=== PATIENT | male | born 1945 | race Caucasian/White ===

== ENCOUNTER → 2018-01-12 11:25 | Outpatient (CLI) | payer OTHER, SELFPAY ==
--- NOTE | 2018-01-12 | DI.CT.S_ITS ---
PROCEDURE: CT CHEST ABD PEL W CON INDICATIONS: PROSTATE CANCER TECHNIQUE: After the administration of oral and intravenous contrast, 5 mm thick sections acquired from the lung apices to the symphysis. 5 mm coronal and sagittal reformats were performed, with additional 7 mm coronal MIP reformats through the lungs. For radiation dose reduction, the following was used: automated exposure control, adjustment of mA and/or kV according to patient size. COMPARISON: [facility], CT, CT KUB, 11/23/2017, 12:36. [facility], [place], [place] BONE SCAN WHOLE BODY, 01/12/2018, 13:28. FINDINGS: Image quality: Excellent. CHEST: Lungs and pleura: No acute airspace opacities. No pleural effusions or pneumothorax. Central and peripheral airways appear patent and normal in caliber. Mediastinum: Heart size is normal. No pericardial effusion. No mediastinal or hilar adenopathy by size criteria. Thoracic aorta and central pulmonary arteries are normal in size. Esophagus is normal in caliber. No hiatal hernia. Chest wall: No axillary or supraclavicular adenopathy by size criteria. Thyroid gland appears normal. ABDOMEN: Solid organs: Liver is normal in size and enhancement. Gallbladder appears normal. Biliary system is non dilated. Pancreas enhances normally. Spleen is normal in size and enhancement. No adrenal nodules. Kidneys demonstrate normal size and enhancement, without hydronephrosis. Peritoneum and bowel: Bowel loops demonstrate normal wall thickness and caliber. No free fluid or air. Nodes and vessels: There is definite retroperitoneal but no mesenteric adenopathy by size criteria. The adenopathy is seen at the left periaortic retroperitoneum at the mid kidney level on the left, where enlarged nodes measuring up to 2.8 cm x 2.3 cm R. cluster, decreasing somewhat in size more inferiorly to the aortic bifurcation level and extending along the external iliac node chain. This retroperitoneal adenopathy has not significantly increased from the comparison noncontrast CT scan in early November of this year. Aorta and inferior vena cava are normal in size. Miscellaneous: No ventral hernias. PELVIS: Genitourinary: Bladder wall thickness is normal. Note is made of a TURP defect extending to the posterior right border of the prostate margin adjacent to the anterior border of the right seminal vesicle. The bladder wall appears asymmetrically thickened left greater than right and somewhat lobulated in the area of operative intervention (see series 2 image 113). Miscellaneous: No inguinal hernias. The para-aortic adenopathy seen within the abdomen extends along the left common iliac artery node chain and extends also along the right and left external iliac artery node chain greater on the left than the right. In this area the largest identified node on the left measures up to 3.5 x 3.2 cm and on the right measures up to 2.5 x 2.1 cm. This adenopathy has not significantly increased, with reference to the prior noncontrast CT scan. Bones: No suspicious bony lesions. Note is made of asymmetric right greater than left L2 region facet osteoarthritis, which correlates with an area of asymmetric increased isotope deposition on nuclear medicine bone scan also performed today. No osteoblastic or osteolytic bone lesions are seen that would indicate likelihood of definite metastatic disease to the osseous elements of the axial or appendicular skeleton. No vertebral body compression fractures. IMPRESSION: 1. Retroperitoneal adenopathy within the abdomen and pelvis, greater on the left than the right within the pelvis and through the abdomen. No osseous metastatic disease is found. 2. Distortion of the junction between the bladder and the prostate gland may represent a TURP defect, extending through the bladder wall on the right to the posterior inferior bladder margin without hematoma or evidence of urinoma. Asymmetric left greater than right bladder wall thickening in this area, posteriorly and inferiorly, of indeterminate significance in the setting of recent operative procedure. 3. As discussed during nuclear medicine bone scan report there is asymmetric facet degeneration at the right L2-3 facet region, but no osteoblastic or lytic change in that area is found. Dictated by: Boston Mccurdy M.D. on 01/12/2018 at 15:15 Approved by: Boston Mccurdy M.D. on 01/12/2018 at 15:35
--- NOTE | 2018-01-12 | DI.NM.S_ITS ---
PROCEDURE: [place] BONE SCAN WHOLE BODY RADIOPHARMACEUTICAL: 19.0 mCi Tc-99m MDP IV. INDICATIONS: PROSTATE CANCER TECHNIQUE: Delayed whole-body scintigrams were obtained approximately 3-4 hours after intravenous injection of radiotracer. Anterior and posterior views were acquired from vertex to feet. Additional left and right oblique views of the pelvis were obtained. COMPARISON: [facility], CT, CT CHEST ABD PEL W CON, 01/12/2018, 12:47. FINDINGS: There is focal elevated isotope uptake noted at the right L2-3 facet region, and correlation with a prior CT obtained earlier today shows subtle asymmetric increased degenerative thinning of the facet joint in that region when compared to a normal appearance on the left. 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 However, please also refer to the report from CT scanning obtained today discussing retroperitoneal adenopathy. Dictated by: Boston Mccurdy M.D. on 01/12/2018 at 15:08 Approved by: Boston Mccurdy M.D. on 01/12/2018 at 15:14
== END ==
PROVIDERS: PCP Family Medicine; Visit Provider Specialist
DX: C61 Malignant neoplasm of prostate (principal)
CPT/HCPCS: 71260; 74177; 78306; A9503; Q9967

== ENCOUNTER 2018-02-08 11:30 | Day surgery (SDC) | payer OTHER, SELFPAY ==
[2018-02-08] VITALS (8 sets, daily range): BP systolic 91–112; BP diastolic 56–78; PULSE 64–83; RESP 8–16; TEMP 35.8–36.6; O2SAT 92–99; BMI 36.1
--- NOTE | 2018-02-08 | PATH_ITS ---
[facility] Accession Number: [id number] . 01 Material submitted: . PART A: COLON POLYP AT 40CM PART B: HEPATIC FLEXTURE POLYP . 02 Diagnosis: A. Colon, Polyp at 40 CM, Biopsy: Tubular adenoma. . B. Hepatic Flexure, Polyp, Biopsy: Tubular adenoma. L/02/09/2018 . 02 Electronically signed: . Whitney Paris MD, Pathologist NPI- [id number] . 01 Gross description: . Received are two formalin-filled containers, both labeled with the patient's name: . A. In a container labeled colon polyp at 40 cm, are three 0.2-0.3 cm portions of tissue, entirely submitted in cassette A. B. In a container labeled hepatic flexure polyp, the specimen consists of a 0.4 cm portion of tissue, entirely submitted in cassette B. ([id number]) /FRR . 02 Pathologist provided ICD-10: D12.6, D12.3 . 02 CPT . 077042, [id number] Performed at: 01 [facility] [address], [place], [place] [id number] MD Rubén Palm MD Phone: [phone] Performed at: 02 [facility] [address] [place], [place] [id number] MD Sal Brunson MD Phone: [phone]
[2018-02-08] MEDS: SODIUM CHLORIDE 0.9% 1,000 ML 200 ML IV (12:12)
--- NOTE | 2018-02-08 13:30 | SUR.OPER ---
to endo from opd via cart tespirations unlabored iv patent positioned per self foer procedure
--- NOTE | 2018-02-08 13:49 | SUR.OPER ---
tolerate procedure well
--- NOTE | 2018-02-08 13:50 | PM.HP.1 ---
History of Present Illness Date Patient Seen: 02/08/18 Time Patient Seen: 12:53 Chief complaint: [id number] Narrative: Anthony is a very pleasant gentleman of 72 years who is accompanied by his . He reports that he has never had a screening colonoscopy and has been meaning to do so but has put off for number of years. He was recently diagnosed with prostate cancer and it was felt it was a good idea if he should go ahead and have a colonoscopy during this workup process. Patient History Family & Social History Family History: Reviewed 02/08/18 by Lanette An MD Social History: household members spouse Meds Home Medications Medication Instructions Recorded Confirmed Type lisinopril-hydrochlorothiazide 1 tab PO QDAY #90 tab 06/05/16 02/08/18 Rx amlodipine [Norvasc] 5 mg PO QDAY #90 tab 11/03/16 02/08/18 Rx Allergies Allergy/AdvReac Type Severity Reaction Status Date / Time No Known Drug Allergies Allergy Verified 02/08/18 13:25 Review of Systems Review of Systems All systems reviewed & are unremarkable except as noted in HPI and below Exam Vital Signs (past 8 hours): Vital Signs - 8 hr 02/08/18 12:12 Temperature 96.8 F L Pulse Rate 83 Respiratory Rate 16 Blood Pressure 112/73 Pulse Oximetry 99 Pulse Oximetry 99 Oxygen Delivery Method Room Air Narrative Exam Narrative: Very pleasant well-nourished well-developed gentleman in no distress HEENT: Normocephalic and atraumatic, pupils equal round reactive to light accommodation with anicteric sclera Lungs: Clear to auscultation bilaterally Heart: Regular rate and rhythm Abdomen: Soft, nontender to palpation, active bowel sounds Extremities: Warm and well perfused Assessment & Plan (1) Prostate cancer: Current visit: No Status: Acute Plan: Assessment/Plan Narrative: Pleasant and generally healthy 72-year-old gentleman with a new diagnosis of prostate cancer. He has never had a screening colonoscopy. We discussed the risks and benefits of the procedure the patient expressed a desire to continue today.
[2018-02-08] MEDS: fentaNYL 250 MCG/5 ML INJ 200 MCG IV (13:52)
[2018-02-08] MEDS: MIDAZOLAM 5 MG/5 ML VIAL 8 MG IV (13:53)
--- NOTE | 2018-02-08 13:55 | P.HP_ITS ---
History of Present Illness Date Patient Seen: 02/08/18 Time Patient Seen: 12:53 Chief complaint: [id number] Narrative: Anthony is a very pleasant gentleman of 72 years who is accompanied by his . He reports that he has never had a screening colonoscopy and has been meaning to do so but has put off for number of years. He was recently diagnosed with prostate cancer and it was felt it was a good idea if he should go ahead and have a colonoscopy during this workup process. Patient History Family & Social History Family History: Reviewed 02/08/18 by Lanette An MD Social History: household members spouse Meds Home Medications Medication Instructions Recorded Confirmed Type lisinopril-hydrochlorothiazide 1 tab PO QDAY #90 tab 06/05/16 02/08/18 Rx amlodipine [Norvasc] 5 mg PO QDAY #90 tab 11/03/16 02/08/18 Rx Allergies Allergy/AdvReac Type Severity Reaction Status Date / Time No Known Drug Allergies Allergy Verified 02/08/18 13:25 Review of Systems Review of Systems All systems reviewed & are unremarkable except as noted in HPI and below Exam Vital Signs (past 8 hours): Vital Signs - 8 hr 3 02/08/18 12:12 Temperature 96.8 F L Pulse Rate 83 Respiratory Rate 16 Blood Pressure 112/73 Pulse Oximetry 99 Pulse Oximetry 99 Oxygen Delivery Method Room Air Narrative Exam Narrative: Very pleasant well-nourished well-developed gentleman in no distress HEENT: Normocephalic and atraumatic, pupils equal round reactive to light accommodation with anicteric sclera Lungs: Clear to auscultation bilaterally Heart: Regular rate and rhythm Abdomen: Soft, nontender to palpation, active bowel sounds Extremities: Warm and well perfused Assessment & Plan (1) Prostate cancer: Current visit: No Status: Acute Plan: Assessment/Plan Narrative: Pleasant and generally healthy 72-year-old gentleman with a new diagnosis of prostate cancer. He has never had a screening colonoscopy. We discussed the risks and benefits of the procedure the patient expressed a desire to continue today.
--- NOTE | 2018-02-08 13:55 | PM.OP.1 ---
Operative Date/Time/Diagnoses - Date of procedure: 02/08/18 Time of procedure: 13:56 Pre-op diagnosis: Screening Post-op diagnosis: same Procedure & Clinicians Procedure: Colonoscopy to the cecum with polypectomy x2 Same procedure as scheduled: Yes Indications: No prior colonoscopy Surgeon: Lanette An Click Yes if Unassisted: Yes Anesthesia Type: Sedation Operative Notes Findings: 1. Excellent prep 2. Significant diverticulosis in the sigmoid region with large tics and false passages. Relative sparing of the remainder of the colon 3. Two small sessile polyps removed with cold forceps and retained for pathology. A 2-3 mm polyp at the hepatic flexure and a 3-4 mm polyp at 40 cm from the anal verge 4. No AV malformations or other mucosal abnormalities 5. Grade 1-2 internal hemorrhoids Closure Type: not applicable Estimated Blood Loss (mL): 1 Procedure in detail: After obtaining informed consent, the patient was brought to the GI suite and placed in the left lateral decubitus position on the examination table. After placement of appropriate monitors, the patient was given incremental doses of Versed and Fentanyl until an appropriate level of sedation was achieved. A time out was held per SCOAP protocol. A digital rectal examination was performed and did not reveal any masses or obstructing lesions. The colonoscope was gently passed into the patient's anus and the entire colon navigated to the level of the cecum with minimal difficulty. Once in the cecum, the scope was withdrawn being sure to go before and beyond all mucosal folds and prominences and get an excellent examination. The findings are noted above. At the level of the rectal vault, the scope was retroflexed and the internal anal canal was examined. The scope was straightened and air aspirated from the colon. The instrument was removed from the patient's body and the procedure was concluded. The patient was allowed to awaken from sedation without difficulty and taken to the post-anesthesia care unit in good condition. Total sedation times 24 min Total withdrawal time 17 min Complications: none
--- NOTE | 2018-02-08 15:01 | SUR.PHASEII ---
pt ready to go, all outcomes met. pt dressed and left when ready and in stable condition.
== END 2018-02-08 14:48 | disposition home or self-care (01) ==
PROVIDERS: PCP Family Medicine; Visit Provider Surgery
PROC: 0DJD8ZZ Inspection of Lower Intestinal Tract, Via Natural or Artificial Opening Endoscopic (ICD-10-PCS; CPT 45378; principal; 2018-02-08 13:00)
DX: C61 Malignant neoplasm of prostate (principal); Z12.11 Encounter for screening for malignant neoplasm of colon; K57.30 Diverticulosis of large intestine without perforation or abscess without bleeding; K64.1 Second degree hemorrhoids; D12.6 Benign neoplasm of colon, unspecified; D12.3 Benign neoplasm of transverse colon
CPT/HCPCS: 45380; 99152; 99153; J2250; J3010

== ENCOUNTER → 2018-07-28 10:34 | Outpatient (CLI) | payer OTHER, SELFPAY ==
--- NOTE | 2018-07-28 | DI.NM.S_ITS ---
PROCEDURE: [place] BONE SCAN WHOLE BODY RADIOPHARMACEUTICAL: 21.4 mCi Tc-99m MDP IV. INDICATIONS: PROSTATE CANCER TECHNIQUE: Delayed whole-body scintigrams were obtained approximately 3-4 hours after intravenous injection of radiotracer. Anterior and posterior views were acquired from vertex to feet. COMPARISON: [facility], CT, CT CHEST ABD PEL W CON, 01/12/2018, 12:47. [facility], CR, XR CHEST 1 VIEW, 03/24/2018, 16:19. [facility], [place], [place] BONE SCAN WHOLE BODY, 01/12/2018, 13:28. FINDINGS: There are foci of intensely increased activity in the L2 and L4 vertebral body, suspicious bony metastasis. Increased uptake in the L5-S1 facet joints bilaterally a second lesion. There is diffusely increased activity involving the sternum, which is new and most likely related to recent sternotomy related to CABG. Subtle increased uptake is noted in the right frontal bone right to the midline. No lesions are identified in clavicles, scapulae, ribs, bony pelvis, and visualized shafts of the long bones. There are foci of mildly increased increased uptake in cervical, thoracic and lumbar spine with distribution indistinguishable from degenerative disc and facet disease; early metastasis to spine could be obscured by degenerative changes. There are foci of increased periarticular activity involving shoulders bilaterally, sternoclavicular joints bilaterally, wrists bilaterally, knees bilaterally and both feet, compatible with degenerative/arthritic changes. There is normal soft tissue uptake. IMPRESSION: 1. Increased uptake in lumbar spine levels L2 and L4, suspicious for metastasis. 2. Low level increased activity in the cervical, thoracic and lumbar spine may be degenerative but early metastatic disease could be obscured by the degenerative changes. 3. Degenerative/arthritic changes in multiple peripheral joints. Dictated by: Rufus Gruber M.D. on 07/28/2018 at 15:24 Approved by: Rufus Gruber M.D. on 07/29/2018 at 10:57
== END ==
PROVIDERS: PCP Family Medicine; Visit Provider Internal Medicine
DX: C61 Malignant neoplasm of prostate (principal); M15.0 Primary generalized (osteo)arthritis
CPT/HCPCS: 78306; A9503

== ENCOUNTER → 2019-06-17 10:37 | Outpatient (CLI) | payer OTHER, SELFPAY ==
--- NOTE | 2019-06-17 | DI.MRI.S_ITS ---
PROCEDURE: MR LUMBAR SPINE WO CON INDICATIONS: malignant neoplasm of prostate TECHNIQUE: Noncontrast sagittal T1 spin echo and T2 fast echo, sagittal STIR, axial T1 and T2 fast spin echo through the lumbar spine. In cases with scoliosis, additional coronal T2 fast spin echo may be performed. COMPARISON: [facility], [place], [place] BONE SCAN WHOLE BODY, 11/02/2018, 14:24. FINDINGS: Image quality: Excellent. Alignment and Curvature: There is normal bony alignment. Bone Marrow: Decreased T1 and increased T2 signal noted in the marrow space of the L2 and L4 vertebral bodies compatible with metastatic disease. No acute vertebral body compression fractures. Spinal Cord: Conus medullaris terminates at the L2 level. Visualized cord demonstrates normal signal and size. Paraspinous Soft Tissues: No paravertebral masses. L1-L2: Normal appearance. L2-L3: Loss of the signal. Minimal, diffuse disc bulge. No central stenosis. No neural foraminal narrowing. No neural compression. L3-L4: Loss of the signal. Mild, diffuse disc bulge. No central stenosis. Mild right neural foraminal narrowing. No neural compression. L4-L5: Loss of the signal. Mild, diffuse disc bulge. No central stenosis. Mild to moderate bilateral neural foraminal narrowing. No neural compression. L5-S1: Loss of the signal. Mild, diffuse disc bulge. Moderate bilateral facet hypertrophy. No central stenosis. Severe right and [id number] left neural foraminal narrowing with marked compression of the exiting right L5 nerve root and slight compression of the exiting left L5 nerve root. IMPRESSION: 1. Metastatic disease involving the L2 and L4 vertebral bodies. 2. Multilevel degenerative disease. 3. L5-S1 facet arthropathy. 4. No central stenosis. 5. Severe right and moderate to severe left L5-S1 neural foraminal narrowing. Mild to moderate bilateral L4-L5 neural foraminal narrowing. Mild right L3-L4 neural foraminal narrowing. 6. Compression of the exiting bilateral L5 nerve roots secondary to neural foraminal narrowing. Please correlate with clinical data. Dictated by: Mena Luna MD, PhD on 06/19/2019 at 11:47 Approved by: Mena Luna MD, PhD on 06/19/2019 at 11:51
== END ==
PROVIDERS: PCP Family Medicine; Referring Provider Internal Medicine; Visit Provider Family Medicine
DX: C61 Malignant neoplasm of prostate (principal); C79.51 Secondary malignant neoplasm of bone; M51.36 Other intervertebral disc degeneration, lumbar region; M47.817 Spondylosis without myelopathy or radiculopathy, lumbosacral region; M48.07 Spinal stenosis, lumbosacral region; M48.061 Spinal stenosis, lumbar region without neurogenic claudication; R10.31 Right lower quadrant pain
CPT/HCPCS: 72148

== ENCOUNTER 2019-07-30 13:50 | Emergency (ER) | payer OTHER, SELFPAY ==
[2019-07-30] VITALS (7 sets, daily range): BP systolic 108–138; BP diastolic 61–78; PULSE 71–91; RESP 16–22; TEMP 37.1; O2SAT 94–99; BMI 39.7
[2019-07-30 14:41] LABS: Appearance Urine UA SL CLOUDY; Bilirubin Urine UA 2+ (NEGATIVE); Color Urine UA YELLOW; Glucose Urine UA NEGATIVE (Negative); Ketones Urine UA TRACE (NEGATIVE); Leukocyte Esterase Urine UA TRACE (NEGATIVE); Nitrite Urine UA NEGATIVE (Negative); Occult Blood Urine UA 3+ (Negative); Protein Urine UA 1+ (Negative); Specific Gravity Urine UA 1.025 (1.000-1.035)
[2019-07-30 14:50] LABS: Ictotest Urine Positive (Negative); RBC Urine 10-30/HPF (0-5/HPF); Squamous Epithelial Cell Urine 0-1 /HPF (0-5/HPF); WBC Urine 5-10/HPF (0-5/HPF)
[2019-07-30 14:51] LABS: Amorphous Sediment Urine 3+; Bacteria Urine Few (2-10); Culture Indicated Urine Specimen Cultured; Mucus Urine 3+ (Negative)
--- NOTE | 2019-07-30 14:51 | DI.RAD.S_ITS ---
PROCEDURE: XR KUB INDICATIONS: constipation / abd pain/ jaundice TECHNIQUE: One view of the abdomen acquired. COMPARISON: [facility], MR, MR LUMBAR SPINE WO CON, 06/17/2019, 10:50. [facility], [place], [place] BONE SCAN WHOLE BODY, 11/02/2018, 14:24. FINDINGS: Surgical changes and devices: None. Bowel: There is gaseous distention of small and large bowel loops including the descending colon. The transverse colon measures up to approximately 6.7 cm in dimension. There is a moderate amount of colonic stool in the ascending colon. Soft tissues: No suspicious abdominal calcifications. Bones: There is sclerosis of the L2 and L4 vertebral bodies consistent with metastatic disease as seen on the prior studies. IMPRESSION: 1. Nonspecific bowel gas pattern with gas distention of small and large bowel loops including the colon. Findings are suggestive of an ileus and less likely a distal obstruction. Dictated by: Rubén Rollins M.D. on 07/30/2019 at 14:18 Approved by: Rubén Rollins M.D. on 07/30/2019 at 14:22
[2019-07-30 14:53] LABS: Add Manual Diff / Slide Review NO; Basophils Absolute Auto 100 /uL (0-100); Basophils Percent Auto 0.3 % (0-2); Eosinophils Absolute Auto 100 /uL (0-450); Eosinophils Percent Auto 0.5 % (2-4); Hematocrit 36.6 % (41-53); Hemoglobin 12.1 g/dL (13.5-17.5); Lymphocytes Absolute Auto 1000 /uL (1100-4500); Lymphocytes Percent Auto 6.7 % (25-40); Mean Corpuscular Hemoglobin 29.3 PG (26-34); Mean Corpuscular Volume 88.6 fL (80-100); Monocytes Absolute Auto 1500 /uL (0-900); Monocytes Percent Auto 10.2 % (3-14); Neutrophils Absolute Auto 12400 /uL (1500-7000); Neutrophils Percent Auto 82.3 % (50-75); Platelet Count 340 X10^3/uL (150-400); Red Blood Cell Count 4.13 X10^6/uL (4.5-5.9); Red Cell Distribution Width 15.3 % (11.6-14.8); White Blood Cell Count 15.1 X10^3/uL (4.5-11.0)
[2019-07-30 15:14] LABS: INR 1.1 (0.9-1.3); Prothrombin Time 13.3 SECONDS (10.1-12.7)
[2019-07-30 15:17] LABS: PTT Partial Thromboplastin Tim 31 SECONDS (26.4-36.2)
[2019-07-30 15:18] LABS: Alanine Aminotransferase 15 IU/L (<50); Albumin Globulin Ratio 1.1 (1.0-2.8); Alkaline Phosphatase 176 U/L (38-126); Aspartate Aminotransferase 44 IU/L (17-59); Bilirubin Total 1.7 mg/dL (0.2-1.3); Blood Urea Nitrogen 27 mg/dL (9-20); Calcium 8.7 mg/dL (8.4-10.2); Carbon Dioxide 23 mmol/L (22-32); Chloride 100 mmol/L (98-107); Estimated Glomerular Filt Rate > 60.0 mL/min (>60); Globulin 3.8 g/dL (1.7-4.1); Glucose 103 mg/dL (80-110); Lipase 96 U/L (23-300); Sodium 131 mmol/L (137-145); Total Protein 7.8 g/dL (6.3-8.2)
[2019-07-30 15:19] LABS: HEMOLYSIS 105 (0-50); Potassium 4.8 mmol/L (3.4-5.1)
[2019-07-30 15:19] LABS: Alanine Aminotransferase 15 IU/L (<50); Albumin Globulin Ratio 1.1 (1.0-2.8); Alkaline Phosphatase 175 U/L (38-126); Aspartate Aminotransferase 49 IU/L (17-59); Bilirubin Total 1.7 mg/dL (0.2-1.3); Bilirubin Unconjugated 1.3 mg/dL (0.0-1.1); Globulin 3.8 g/dL (1.7-4.1); Total Protein 7.8 g/dL (6.3-8.2)
[2019-07-30 15:20] LABS: HEMOLYSIS 117 (0-50)
[2019-07-30] MEDS: LIDOCAINE 2% (UROJET) 5 ML GEL TOP (15:29)
--- NOTE | 2019-07-30 15:38 | PC.NURSE ---
Pt w/ h/o urinary retention. Bladder scan < 10 ml. Pt states he has had decreased urinary output only voiding 10-25 cc at a time. Discussed w/ Dr. Alvarez who ordered catheter. Placed w/ scant output of dr bell / yellow urine. Pt tolerated well.
[2019-07-30] MEDS: SODIUM CHLORIDE 0.9% 1,000 ML 1000 ML IV (15:44)
[2019-07-30 15:58] LABS: Acetaminophen < 10 ug/mL (10-30)
--- NOTE | 2019-07-30 16:04 | DI.CT.S_ITS ---
PROCEDURE: CT ABDOMEN PELVIS W CON INDICATIONS: abdominal pain, progressive distention, cancer TECHNIQUE: After the administration of intravenous contrast, 5 mm thick sections acquired from the diaphragm to the symphysis. 5 mm coronal and sagittal reformats were acquired. For radiation dose reduction, the following was used: automated exposure control, adjustment of mA and/or kV according to patient size. COMPARISON: [facility], CT, CT CHEST ABD PEL W CON, 01/12/2018, 12:47. [facility], CR, XR KUB, 07/30/2019, 14:54. FINDINGS: Image quality: Excellent. ABDOMEN: Lung bases: There is mild dependent atelectasis bilaterally. Heart size is normal. There is a small hiatal hernia. Solid organs: Evaluation of the liver demonstrates no focal hepatic lesions. The gallbladder demonstrates a small region of mild wall thickening in the fundus which appears similar to the prior study. Findings may reflect adenomyomatosis.. Biliary system is non-dilated. Pancreas enhances normally. No peripancreatic fat stranding or fluid collections. No pancreatic duct dilatation. The spleen is normal in size. There is a new right adrenal nodule measuring up to 1.8 x 2.4 cm. Kidneys demonstrate no hydronephrosis. There are bilateral renal cysts. Peritoneum and bowel: Small bowel loops demonstrate normal wall thickness and caliber. There is moderate stool distention within the ascending colon. Mild gaseous distention is demonstrated within the transverse and descending colon. The sigmoid colon is nondistended. There is colonic diverticulosis without acute diverticulitis. Distally, there is suspected invasion of the anterior wall of the rectum by the prostatic mass. No free fluid or air. Nodes and vessels: There is confluent retroperitoneal lymphadenopathy which is increased from the prior study. These include a left para-aortic gasper mass at the level of the renal valentino on series 2 image 45 measuring up to 5.2 x 3.4 cm in transverse dimension. There is a [employer] right external iliac node along the pelvic sidewall measuring up to 3.2 cm in short axis. Along the right common iliac artery, there is a loculated fluid collection measuring approximately 5.1 x 4.3 x 6.3 cm which may represent a necrotic lymph node, lymphocele, or abscess. There is associated fat stranding along the right psoas muscle with suspected psoas involvement. Aorta and inferior vena cava are normal in size. Miscellaneous: No ventral hernias. PELVIS: Genitourinary: There is a Barclay catheter within a decompressed urinary bladder. There is a lobulated mass in the region of the prostate bed measuring approximately 6.8 x 6.3 x 7.0 cm. There is associated invasion of the right pelvic sidewall and the anterior wall of the rectum. Miscellaneous: No inguinal hernias or adenopathy. Bones: There are sclerotic lesions are demonstrated within the L2 and L4 vertebrae consistent with metastatic disease. No vertebral body compression fractures. IMPRESSION: 1. Findings consistent with progression of metastatic and recurrent disease. These include a lobulated mass in the prostate bed with associated invasion of the right pelvic sidewall and anterior wall of the rectum. 2. Progression of retroperitoneal lymphadenopathy consistent with metastatic disease. 3. Irregular loculated retroperitoneal fluid collection along the right common iliac vessels and involving the right psoas muscle. The finding is suggestive of an abscess collection. The differential includes a lymphocele or seroma although these are less likely in the absence of associated post surgical changes. The differential also includes a necrotic lymph node but is considered less likely. 4. Moderate proximal colonic stool distention and mild gas distention in the transverse colon may reflect an ileus and constipation. No definite evidence of bowel obstruction. 5. Sclerotic lesions in the L2 and L4 vertebrae redemonstrated consistent with metastatic disease. Findings discussed with Dr. Alvarez on 07/30/19 at 5:10 PM [place] time. Dictated by: Rubén Rollins M.D. on 07/30/2019 at 15:58 Approved by: Rubén Rollins M.D. on 07/30/2019 at 16:17
--- NOTE | 2019-07-30 16:34 | ED.ABDPAIN ---
HPI - Abdominal Pain General Chief Complaint: Abdominal Pain Stated Complaint: severe abdomen/ back pain x3 Time Seen by Provider: 07/30/19 14:49 Source: patient Mode of arrival: Ambulatory Limitations: no limitations History of Present Illness HPI narrative: Patient comes emergency department complaining of increasing abdominal pain, distention, and generalized weakness for the last several days. The patient denies chest pain, shortness of breath, or fevers. 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 Nettles of Oncology through [facility]. The patient resides on [facility] and receives all of his care there. Patient states that he had a CT scan a couple of weeks ago and he does not think it showed anything worse than before. He denies any dysuria that is new or worse than usual. He states he has trouble initiating his stream at baseline. He denies any blood in his stools or constipation. No diarrhea. No nausea or vomiting. The patient's states that the patient has become so weak that he can barely flex at the hips to lift his legs. He has also had trouble ambulating around the house, due to generalized weakness. No other complaints at this time. Related Data Home Medications Medication Instructions Recorded Confirmed abiraterone 1,000 mg PO DAILY 07/30/19 07/30/19 amlodipine 2.5 mg PO QAM 07/30/19 07/30/19 atorvastatin 20 mg PO DAILY 07/30/19 07/30/19 hydrocodone-acetaminophen 1 tab PO Q4-6H PRN 07/30/19 07/30/19 lisinopril 20 mg PO DAILY 07/30/19 07/30/19 methocarbamol 500 mg PO QID PRN 07/30/19 07/30/19 metoprolol tartrate 25 mg PO BID 07/30/19 07/30/19 prednisone 5 mg PO BID 07/30/19 07/30/19 Allergies Allergy/AdvReac Type Severity Reaction Status Date / Time No Known Drug Allergies Allergy Verified 02/08/18 13:25 Review of Systems Constitutional Constitutional: Denies chills, Denies fatigue, Denies fever(s), Denies frequent falls, Denies lethargy and Reports weakness Eyes Eyes: Denies change in vision, Denies eye discharge, Denies irritation and Denies loss of vision ENT Ears, Nose, Mouth, and Throat: Denies change in voice, Denies dizziness, Denies neck pain, Denies sore throat and Denies throat swelling Cardiovascular Cardiovascular: Denies chest pain, Denies irregular heart rhythm, Denies lightheadedness, Denies palpitations, Denies dyspnea, Denies dyspnea on exertion and Denies orthopnea Respiratory Respiratory: Denies cough, Denies dyspnea, Denies dyspnea on exertion and Denies wheezing Gastrointestinal Gastrointestinal: Reports abdominal pain, Denies change in bowel habits, Denies diarrhea, Denies nausea and Denies vomiting Genitourinary Genitourinary: Denies hematuria, Denies flank pain, Denies urinary incontinence and Denies urinary urgency Musculoskeletal Musculoskeletal: Denies back pain, Denies muscle weakness, Denies neck pain, Denies numbness and Denies tingling Integumentary/Breasts Skin/Breast: Denies pruritus, Denies erythema, Denies rash and Denies wounds Neurologic Neurologic: Denies behavioral changes, Denies confusion, Denies dizziness, Denies frequent falls, Denies loss of vision, Denies numbness, Denies tingling and Reports weakness Psychiatric Psychiatric: Denies anxiety, Denies behavioral changes, Denies confusion, Denies depression, Denies homicidal ideation and Denies suicidal ideation Endocrine Endocrine: Denies fatigue, Denies flushing and Denies palpitations Hematologic/Lymphatic Hematologic/Lymphatic: Denies easy bruising Allergic/Immunologic Allergic/Immunologic: Denies urticaria, Denies throat swelling and Denies wheezing Patient History Medical History Hyperlipidemia (06/10/16) Hypertension (Acute 11/06/14) Prostate cancer (Acute) Social History household members: spouse Smoking Status: Never smoker Smoking Status: Never smoker Substance Use Type: does not use Exam Initial Vital Signs Initial Vital Signs: Vital Signs Temperature 98.7 F 07/30/19 14:16 Pulse Rate 87 07/30/19 14:16 Respiratory Rate 16 07/30/19 14:16 Blood Pressure 125/77 07/30/19 14:16 Pulse Oximetry 97 07/30/19 14:16 Const General: cooperative and well developed Nutritional Appearance: well nourished Orientation: alert, awake, oriented x3 and not confused HENVA Head: normocephalic and atraumatic Ears: external ears normal Nose: external nose normal and No nasal discharge Face and sinus: face symmetric and No dry mucous membranes Mouth: oral mucosae normal and moist mucous membranes Teeth and gingiva: dentition normal Eyes General: appearance normal, both eyes and all related structures Eyelids: eyelids normal Conjunctivae: conjunctivae normal Sclera: sclerae normal Pupils: PERRL EOM: EOM intact bilaterally Neck Neck: normal visual inspection, trachea midline, No lymphadenopathy, No midline deformity and No JVD Lymphatic: No lymphedema Chest Chest: normal inspection of the chest Resp Effort & Inspection: normal respiratory effort, able to speak in complete sentences, no respiratory distress and no use of accessory muscles Auscultation: clear to auscultation bilaterally, no rales, no rhonchi and no wheezes Cardio Rate: regular rate Rhythm: regular rhythm Heart Sounds: no click, no gallops, no murmurs and no rubs Pulses: normal peripheral pulses GI Inspection: distended Palpation: soft, No guarding, No pulsatile mass and No tender Back/Spine/Pelvis Back: No CVA tenderness Cervical Spine: cervical ROM normal and No pain with cervical ROM Thoracic/Lumbar Spine: thoracic and lumbar spine normal to inspection Skin General: no rashes or lesions noted, No jaundice and No petechiae Neuro General: alert, oriented x3, gait normal and no focal motor deficits Speech: speech normal Extrem General: full ROM and edema (1+ bilateral) Psych Appearance: well kempt Mental Status: mental status grossly normal Attitude: cooperative Thought Content: normal and suicidality Judgment: judgment good Course Course Course Narrative: The patient was worked up with labs, UA and CT scan of the abdomen and pelvis with contrast. Patient's white blood cell count was found to be 15.1. His CT of the abdomen and pelvis showed an enlarging prostate mass invading the bladder and rectum, along with enlarged lymph nodes regionally. It also showed a large fluid collection in the right psoas muscle suspicious for abscess. Given that the patient's cancer care head been administered through [facility] in [place], I felt it would be most appropriate for the patient to have his care for all of the above issues coordinated through [facility]. As such, I did speak with Dr. Bingham who was on hospitalist call there, and he did agree to accept the patient in transfer. However, when I spoke with the patient about transfer, the patient and his stated that they did not want to incur the cost of an ambulance transport, and as such, they wished to drive via private vehicle to [place]. I discussed with them that due to the gravity of the patient's condition, and the high likelihood of deterioration in the patient's condition, should he decide not to go through with the plan for admission, that he should stay in a monitored care situation and go by ambulance. The patient stated he would prefer to sign out against medical advice and drive to [place] instead. I discussed with him that he will not be able to be a direct admit, but will have to go through the emergency department and have admission rearranged there. The patient stated that this was okay with him. The ambulance crew did arrive early and also offer the patient transported to [facility], but the patient declined again. As such, I did speak with 1 of the emergency physicians on duty to inform him that the patient would be coming and of the details of the patient's presentation and workup. We have also sent a packet containing my note as well as the workup results with the patient to help inform his visit at the emergency department in [place]. The patient understands the extreme importance of going straight to the hospital to continue receiving care without any lapses. He has been given a dose of Zosyn in the emergency department, as well as a dose of Dilaudid for symptomatic relief. He has remained hemodynamically stable. Orders Ordered: ED Orders 07/30/19 14:29 Ictotest Urine Stat Urinalysis and Microscopic Stat Urine Culture Stat 07/30/19 14:35 EKG-12 Lead Stat 07/30/19 14:43 Acetaminophen Stat Complete Blood Count AUTO DIFF Stat Comprehensive Metabolic Panel Stat Lipase Stat Partial Thromboplastin Time Stat Prothrombin Time INR Stat 07/30/19 14:51 XR KUB Stat 07/30/19 14:53 Hepatic (Liver) Panel Stat 07/30/19 16:04 CT abdomen pelvis w con Stat 07/30/19 18:07 Blood Culture Stat Discontinued Medications Hydromorphone HCl (Dilaudid) 1 mg IV NOW ONE Stop: 07/30/19 19:08 Last Admin: 07/30/19 19:22 Dose: 1 mg Documented by: RSTONE Sodium Chloride (Normal Saline 0.9%) 1,000 mls @ 1,000 mls/hr IV BOLUS ONE Stop: 07/30/19 16:42 Last Infusion: 07/30/19 17:05 Dose: 0 mls/hr Documented by: Admin: 07/30/19 15:44 Dose: 1,000 mls/hr Documented by: MILTON Piperacillin/Tazobactam/Dextrose (Zosyn) 4.5 gm in 100 mls @ 200 mls/hr IV NOW ONE Stop: 07/30/19 18:16 Last Admin: 07/30/19 18:50 Dose: 200 mls/hr Documented by: CARLY Lidocaine HCl (Urojet) 5 ml TOP NOW ONE Stop: 07/30/19 15:23 Last Admin: 07/30/19 15:29 Dose: 5 ml Documented by: MILTON Vital Signs Vital signs: Vital Signs - 8 hr 07/30/19 14:16 07/30/19 14:52 Temperature 98.7 F Pulse Rate 87 71 Respiratory Rate 16 22 Blood Pressure 125/77 Blood Pressure [Right Arm] 138/74 Pulse Oximetry 97 94 MDM - Abdominal Pain Medical Records Attestation: I reviewed the patient's medical records. Lab Data Attestation: I reviewed the patient's lab results. Result diagrams: 07/30/19 14:43 07/30/19 14:43 Labs: Lab Results 07/30/19 07/30/19 07/30/19 Range/Units 14:29 14:43 14:43 WBC 15.1 H (4.5-11.0) X10^3/uL RBC 4.13 L (4.5-5.9) X10^6/uL Hgb 12.1 L (13.5-17.5) g/dL Hct 36.6 L (41-53) % MCV 88.6 (80-100) fL MCH 29.3 (26-34) PG MCHC 33.0 (30-36) % RDW 15.3 H (11.6-14.8) % Plt Count 340 (150-400) X10^3/uL Neut % (Auto) 82.3 H (50-75) % Lymph % (Auto) 6.7 L (25-40) % [place] % (Auto) 10.2 (3-14) % Eos % (Auto) 0.5 L (2-4) % Baso % (Auto) 0.3 (0-2) % Neut # (Auto) 93723 H (2466-7121) /uL Lymph # (Auto) 1000 L (9922-0484) /uL [place] # (Auto) 1500 H (0-900) /uL Eos # (Auto) 100 (0-450) /uL Baso # (Auto) 100 (0-100) /uL PT 13.3 H (10.1-12.7) SECONDS INR 1.1 (0.9-1.3) APTT 31 (26.4-36.2) SECONDS Sodium (137-145) mmol/L Potassium (3.4-5.1) mmol/L Chloride (98-107) mmol/L Carbon Dioxide (22-32) mmol/L BUN (9-20) mg/dL Creatinine (0.66-1.25) mg/dL Estimated GFR (>60) mL/min BUN/Creatinine Ratio (6-22) Glucose (80-110) mg/dL Calcium (8.4-10.2) mg/dL Total Bilirubin (0.2-1.3) mg/dL Conjugated Bilirubin (0.0-0.3) md/dL Unconjugated Bilirubin (0.0-1.1) mg/dL AST (17-59) IU/L ALT (<50) IU/L Alkaline Phosphatase (38-126) U/L Total Protein (6.3-8.2) g/dL Albumin (3.5-5.0) g/dL Globulin (1.7-4.1) g/dL Albumin/Globulin Ratio (1.0-2.8) Lipase (23-300) U/L Urine Color Yellow Urine Appearance Sl cloudy Urine pH 5.0 (4.5-8.0) Ur Specific [place] 1.025 (1.000-1.035) Urine Protein 1+ H (Negative) Urine Glucose (UA) Negative (Negative) g/dL Urine Ketones Trace H (NEGATIVE) Urine Occult Blood 3+ H (Negative) Urine Nitrate Negative (Negative) Urine Bilirubin 2+ H (NEGATIVE) Urine Ictotest Positive H (Negative) Urine Urobilinogen 2.0 H (0.2) E.U./dL Ur Leukocyte Esterase Trace H (NEGATIVE) Urine RBC 10-30/hpf H (0-5/HPF) Urine WBC 5-10/hpf H (0-5/HPF) Ur Squamous Epith Cells 0-1 /hpf (0-5/HPF) Amorphous Sediment 3+ Urine Bacteria Few (2-10) H (None) Urine Mucus 3+ H (Negative) Ur Culture Indicated? Specimen cultured Acetaminophen (10-30) ug/mL 07/30/19 07/30/19 07/30/19 Range/Units 14:43 14:43 14:53 WBC (4.5-11.0) X10^3/uL RBC (4.5-5.9) X10^6/uL Hgb (13.5-17.5) g/dL Hct (41-53) % MCV (80-100) fL MCH (26-34) PG MCHC (30-36) % RDW (11.6-14.8) % Plt Count (150-400) X10^3/uL Neut % (Auto) (50-75) % Lymph % (Auto) (25-40) % [place] % (Auto) (3-14) % Eos % (Auto) (2-4) % Baso % (Auto) (0-2) % Neut # (Auto) (1170-8590) /uL Lymph # (Auto) (3257-0188) /uL [place] # (Auto) (0-900) /uL Eos # (Auto) (0-450) /uL Baso # (Auto) (0-100) /uL PT (10.1-12.7) SECONDS INR (0.9-1.3) APTT (26.4-36.2) SECONDS Sodium 131 L (137-145) mmol/L Potassium 4.8 (3.4-5.1) mmol/L Chloride 100 (98-107) mmol/L Carbon Dioxide 23 (22-32) mmol/L BUN 27 H (9-20) mg/dL Creatinine 0.90 (0.66-1.25) mg/dL Estimated GFR > 60.0 (>60) mL/min BUN/Creatinine Ratio 30.0 H (6-22) Glucose 103 (80-110) mg/dL Calcium 8.7 (8.4-10.2) mg/dL Total Bilirubin 1.7 H 1.7 H (0.2-1.3) mg/dL Conjugated Bilirubin 0.0 (0.0-0.3) md/dL Unconjugated Bilirubin 1.3 H (0.0-1.1) mg/dL AST 44 49 (17-59) IU/L ALT 15 15 (<50) IU/L Alkaline Phosphatase 176 H 175 H (38-126) U/L Total Protein 7.8 7.8 (6.3-8.2) g/dL Albumin 4.0 4.0 (3.5-5.0) g/dL Globulin 3.8 3.8 (1.7-4.1) g/dL Albumin/Globulin Ratio 1.1 1.1 (1.0-2.8) Lipase 96 (23-300) U/L Urine Color Urine Appearance Urine pH (4.5-8.0) Ur Specific [place] (1.000-1.035) Urine Protein (Negative) Urine Glucose (UA) (Negative) g/dL Urine Ketones (NEGATIVE) Urine Occult Blood (Negative) Urine Nitrate (Negative) Urine Bilirubin (NEGATIVE) Urine Ictotest (Negative) Urine Urobilinogen (0.2) E.U./dL Ur Leukocyte Esterase (NEGATIVE) Urine RBC (0-5/HPF) Urine WBC (0-5/HPF) Ur Squamous Epith Cells (0-5/HPF) Amorphous Sediment Urine Bacteria (None) Urine Mucus (Negative) Ur Culture Indicated? Acetaminophen < 10 L (10-30) ug/mL Imaging Data CT scan - abdomen: Radiologist's impression: PROCEDURE: CT ABDOMEN PELVIS W CON INDICATIONS: abdominal pain, progressive distention, cancer TECHNIQUE: After the administration of intravenous contrast, 5 mm thick sections acquired from the diaphragm to the symphysis. 5 mm coronal and sagittal reformats were acquired. For radiation dose reduction, the following was used: automated exposure control, adjustment of mA and/or kV according to patient size. COMPARISON: [facility], CT, CT CHEST ABD PEL W CON, 01/12/2018, 12:47. [facility], CR, XR KUB, 07/30/2019, 14:54. FINDINGS: Image quality: Excellent. ABDOMEN: Lung bases: There is mild dependent atelectasis bilaterally. Heart size is normal. There is a small hiatal hernia. Solid organs: Evaluation of the liver demonstrates no focal hepatic lesions. The gallbladder demonstrates a small region of mild wall thickening in the fundus which appears similar to the prior study. Findings may reflect adenomyomatosis.. Biliary system is non-dilated. Pancreas enhances normally. No peripancreatic fat stranding or fluid collections. No pancreatic duct dilatation. The spleen is normal in size. There is a new right adrenal nodule measuring up to 1.8 x 2.4 cm. Kidneys demonstrate no hydronephrosis. There are bilateral renal cysts. Peritoneum and bowel: Small bowel loops demonstrate normal wall thickness and caliber. There is moderate stool distention within the ascending colon. Mild gaseous distention is demonstrated within the transverse and descending colon. The sigmoid colon is nondistended. There is colonic diverticulosis without acute diverticulitis. Distally, there is suspected invasion of the anterior wall of the rectum by the prostatic mass. No free fluid or air. Nodes and vessels: There is confluent retroperitoneal lymphadenopathy which is increased from the prior study. These include a left para-aortic gasper mass at the level of the renal valentino on series 2 image 45 measuring up to 5.2 x 3.4 cm in transverse dimension. There is a artist representative right external iliac node along the pelvic sidewall measuring up to 3.2 cm in short axis. Along the right common iliac artery, there is a loculated fluid collection measuring approximately 5.1 x 4.3 x 6.3 cm which may represent a necrotic lymph node, lymphocele, or abscess. There is associated fat stranding along the right psoas muscle with suspected psoas involvement. Aorta and inferior vena cava are normal in size. Miscellaneous: No ventral hernias. PELVIS: Genitourinary: There is a Barclay catheter within a decompressed urinary bladder. There is a lobulated mass in the region of the prostate bed measuring approximately 6.8 x 6.3 x 7.0 cm. There is associated invasion of the right pelvic sidewall and the anterior wall of the rectum. Miscellaneous: No inguinal hernias or adenopathy. Bones: There are sclerotic lesions are demonstrated within the L2 and L4 vertebrae consistent with metastatic disease. No vertebral body compression fractures. IMPRESSION: 1. Findings consistent with progression of metastatic and recurrent disease. These include a lobulated mass in the prostate bed with associated invasion of the right pelvic sidewall and anterior wall of the rectum. 2. Progression of retroperitoneal lymphadenopathy consistent with metastatic disease. 3. Irregular loculated retroperitoneal fluid collection along the right common iliac vessels and involving the right psoas muscle. The finding is suggestive of an abscess collection. The differential includes a lymphocele or seroma although these are less likely in the absence of associated post surgical changes. The differential also includes a necrotic lymph node but is considered less likely. 4. Moderate proximal colonic stool distention and mild gas distention in the transverse colon may reflect an ileus and constipation. No definite evidence of bowel obstruction. 5. Sclerotic lesions in the L2 and L4 vertebrae redemonstrated consistent with metastatic disease. Findings discussed with Dr. Alvarez on 07/30/19 at 5:10 PM [place] time. Dictated by: Rubén Rollins M.D. on 07/30/2019 at 15:58 Approved by: Rubén Rollins M.D. on 07/30/2019 at 16:17 Discharge Plan Departure Patient Disposition: Left Against Medical Advice Clinical Impression: Psoas abscess, right Activity Restrictions/Additional Instructions: A direct admission with ambulance transport to [facility] has been arranged for you; however, and you have requested to sign out against medical advice. Please go straight to [facility] Emergency Department if you wish to be admitted to the hospital. We have called the emergency department there to let them know that you will hopefully be coming and what the plan is so far. Prescriptions: No Action methocarbamol 500 mg Tablet 500 mg PO QID PRN (Reason: muscle spasms) RF: 0 atorvastatin 20 mg Tablet 20 mg PO DAILY RF: 0 hydrocodone-acetaminophen 5-325 mg Tablet 1 tab PO Q4-6H PRN (Reason: Pain (Scale Score 7-10)) RF: 0 lisinopril 20 mg Tablet 20 mg PO DAILY RF: 0 prednisone 5 mg Tablet 5 mg PO BID RF: 0 amlodipine 2.5 mg Tablet 2.5 mg PO QAM RF: 0 metoprolol tartrate 25 mg Tablet 25 mg PO BID RF: 0 abiraterone 250 mg Tablet 1,000 mg PO DAILY RF: 0 Referrals: Ricki Connelly [Primary Care Provider] - Stand Alone Forms: Against Medical Advice
--- NOTE | 2019-07-30 18:37 | PC.NURSE ---
Pt took own home evening medication w/ provider ok. Noted on medication reconciliation.
[2019-07-30] MEDS: PIPERACILLIN-TAZO 4.5 GM/100 ML FROZ.PIGGY IV (18:50)
[2019-07-30] MEDS: HYDROMORPHONE 1 MG INJ IV (19:22)
== END 2019-07-30 19:43 | disposition left against medical advice (07) ==
PROVIDERS: Emergency Provider Emergency Medicine; PCP Family Medicine
DX: K68.12 Psoas muscle abscess (principal); C61 Malignant neoplasm of prostate; R79.89 Other specified abnormal findings of blood chemistry
CPT/HCPCS: 36415; 51701; 74018; 74177; 80053; 80076; 80329; 81001; 83690; 85025; 85610; 85730; 87040; 87077; 87086; 87147; 87186; 93005; 93010; 96361; 96365; 96375; 99284; 99285; G0480; J1170; J2543; Q9967